=== PATIENT | female | born 1950 | race Caucasian/White ===

== ENCOUNTER → 2018-01-25 | Outpatient (CLI) | payer MEDICARE | END | disposition home or self-care (01) | LOC: CFH 13:43 | PROVIDERS: ATTEND Internal Medicine | DX: N63.10 Unspecified lump in the right breast, unspecified quadrant (principal); R92.1 Mammographic calcification found on diagnostic imaging of breast | CPT/HCPCS: 77065 ==

== ENCOUNTER → 2018-03-08 | Outpatient (CLI) | payer MEDICARE | END | disposition home or self-care (01) | LOC: CFH 08:02 | PROVIDERS: ATTEND Internal Medicine | DX: Z12.2 Encounter for screening for malignant neoplasm of respiratory organs (principal); M81.0 Age-related osteoporosis without current pathological fracture; M85.80 Other specified disorders of bone density and structure, unspecified site; I25.10 Atherosclerotic heart disease of native coronary artery without angina pectoris; R91.1 Solitary pulmonary nodule; F17.210 Nicotine dependence, cigarettes, uncomplicated | CPT/HCPCS: 77080; G0297 ==

== ENCOUNTER → 2018-04-05 | Outpatient (CLI) | payer MEDICARE ==
[~2018-04-05] MED LIST: OMNIPAQUE 350 MG/ML, 150 ML BOTTLE ONE
== END | disposition home or self-care (01) ==
LOC: CFH 09:24
PROVIDERS: ATTEND Physician Assistant Surgical
DX: R93.8 Abnormal findings on diagnostic imaging of other specified body structures (principal); E04.1 Nontoxic single thyroid nodule; K57.30 Diverticulosis of large intestine without perforation or abscess without bleeding
CPT/HCPCS: 74178; 82565; Q9967

== ENCOUNTER → 2018-05-09 | Outpatient (CLI) | payer MEDICARE ==
[~2018-05-09] MED LIST changes: +No meds per pt.; -OMNIPAQUE 350 MG/ML, 150 ML BOTTLE ONE
[2018-05-09 09:39] LABS: MICROSCOPIC NOT IND
== END | disposition home or self-care (01) ==
LOC: STAR 08:47
PROVIDERS: ATTEND Urology
DX: Z01.818 Encounter for other preprocedural examination (principal); C67.9 Malignant neoplasm of bladder, unspecified
CPT/HCPCS: 81003; 87086; 93005

== ENCOUNTER 2018-05-17 08:42 | Day surgery (SDC) | payer MEDICARE ==
[~2018-05-17] VITALS: Ht 167.6 cm; Wt 82.4 kg
[2018-05-17] MEDS ORDERED: ONDANSETRON ODT 8 MG PO ONE (10:00)
[2018-05-17] MEDS ORDERED: ACETAMINOPHEN 500 MG TABLET PO ONE (10:00)
[2018-05-17] MEDS ORDERED: ACETAMINOPHEN 500 MG TABLET ONE (10:01)
[2018-05-17] MEDS ORDERED: MIDAZOLAM 1 MG/ML, 2ML ONE (10:10)
[2018-05-17] MEDS ORDERED: FENTANYL PF 100 MCG/2ML ONE ×2 (10:10→12:07)
[2018-05-17] MEDS ORDERED: LIDOCAINE JELLY 2%, 30GM ONE (10:11)
[2018-05-17] MEDS ORDERED: SUCCINYLCHOLINE 20 MG/ML, 10ML ONE (11:17)
[2018-05-17] MEDS ORDERED: CEFAZOLIN 1,000 MG ONE (11:41)
[2018-05-17] MEDS ORDERED: PROPOFOL 10 MG/ML, 20ML ONE (11:41)
[2018-05-17] MEDS ORDERED: DEXAMETHASONE 4 MG/ML, 1ML ONE (11:41)
[2018-05-17] MEDS ORDERED: SCOPOLAMINE PATCH, 1.5MG PATCH.TD72 TD PRN (12:00)
[2018-05-17] MEDS ORDERED: PROMETHAZINE 25 MG SUPP PR PRN (12:00)
[2018-05-17] MEDS ORDERED: HYDROmorphone 1 MG/ML, 1ML IV PRN (12:00)
[2018-05-17] MEDS ORDERED: MIDAZOLAM 1 MG/ML, 2ML IV PRN (12:00)
[2018-05-17] MEDS ORDERED: LABETALOL 5MG/ML, 20ML IV PRN (12:00)
[2018-05-17] MEDS ORDERED: STERILE WATER INTVESIC ONE (12:00)
[2018-05-17] MEDS ORDERED: OXYcodone 5 MG/5 ML ORAL.SOL UDC PO PRN (12:00)
[2018-05-17] MEDS ORDERED: MITOMYCIN INTVESIC ONE (12:00)
[2018-05-17] MEDS ORDERED: ALBUTEROL/IPRATROPIUM 2.5MG/0.5MG, 3 ML NPPB PRN (12:00)
[2018-05-17] MEDS ORDERED: MEPERIDINE/PF 25MG/0.5ML IVPush PRN (12:00)
[2018-05-17] MEDS ORDERED: ONDANSETRON 2MG/ML, 2ML IV PRN (12:00)
[2018-05-17] MEDS ORDERED: OXYcodone 5 MG/5 ML ORAL.SOL UDC ONE (12:07)
[2018-05-17] MEDS: FENTANYL PF 100 MCG/2ML IV PRN ×2 (12:10→12:16)
== END 2018-05-17 15:00 | disposition home or self-care (01) ==
LOC: OUT 08:42
PROVIDERS: ATTEND Urology
DX: C67.9 Malignant neoplasm of bladder, unspecified (principal); I10 Essential (primary) hypertension
CPT/HCPCS: 52234; 88305; 88307; J0330; J0690; J1100; J2250; J2704; J3010; J9280; Q0162

== ENCOUNTER 2018-07-23 13:19 | Day surgery (SDC) | payer MEDICARE ==
[~2018-07-23] VITALS: Ht 167.6 cm; Wt 83.3 kg
[2018-07-23 14:13] LABS: CULTURE INDICATED? NO; MICROSCOPIC NOT IND
[2018-07-23] MEDS ORDERED: LACTATED RINGERS 1,000 ML IV SCH (14:17)
[2018-07-23 14:19] VITALS: BP 145/84
[2018-07-23] MEDS ORDERED: MIDAZOLAM 1 MG/ML, 2ML ONE (15:16)
[2018-07-23] MEDS ORDERED: FENTANYL PF 250 MCG/5ML ONE (15:16)
[2018-07-23] MEDS ORDERED: PROPOFOL 10 MG/ML, 20ML ONE (15:17)
[2018-07-23] MEDS ORDERED: ROCURONIUM 10 MG/ML,10ML ONE (16:09)
[2018-07-23] MEDS ORDERED: CEFAZOLIN 1,000 MG ONE ×2 (16:24)
[2018-07-23] MEDS ORDERED: ONDANSETRON 2MG/ML, 2ML ONE (16:24)
[2018-07-23] MEDS ORDERED: KETOROLAC 30 MG/1 ML ONE (16:24)
[2018-07-23] MEDS ORDERED: DEXAMETHASONE 4 MG/ML, 1ML ONE (16:24)
[2018-07-23] MEDS ORDERED: OXYcodone 5 MG/5 ML ORAL.SOL UDC PO PRN (16:30)
[2018-07-23] MEDS ORDERED: LABETALOL 5MG/ML, 20ML IV PRN (16:30)
[2018-07-23] MEDS ORDERED: ONDANSETRON 2MG/ML, 2ML IV PRN (16:30)
[2018-07-23] MEDS ORDERED: PROMETHAZINE 25 MG/ML, 1ML IV PRN (16:30)
[2018-07-23] MEDS ORDERED: FENTANYL PF 100 MCG/2ML IV PRN (16:30)
[2018-07-23] MEDS ORDERED: hydrALAzine 20 MG/ML, 1ML IV PRN (16:30)
[2018-07-23] MEDS ORDERED: MEPERIDINE/PF 25MG/0.5ML IVPush PRN (16:30)
[2018-07-23] MEDS ORDERED: HYDROmorphone 2 MG/ML, 1ML IVPush PRN (16:30)
[2018-07-23] MEDS ORDERED: LABETALOL 20 MG/4 ML ONE (17:14)
[2018-07-23] MEDS ORDERED: hydrALAzine 20 MG/ML, 1ML ONE (17:23)
== END 2018-07-23 18:35 | disposition home or self-care (01) ==
LOC: OR 13:19
PROVIDERS: ATTEND Urology
DX: C67.9 Malignant neoplasm of bladder, unspecified (principal); F17.210 Nicotine dependence, cigarettes, uncomplicated; Z72.89 Other problems related to lifestyle; Z98.890 Other specified postprocedural states
CPT/HCPCS: 52234; 81003; 88305; J0690; J1100; J1885; J2250; J2405; J2704; J3010; J7120

== ENCOUNTER → 2018-08-22 | Outpatient (CLI) | payer MEDICARE ==
[~2018-08-22] MED LIST changes: +OMNIPAQUE 350 MG/ML, 100ML BOTTLE ONE
== END | disposition home or self-care (01) ==
LOC: PETCFH 10:46
PROVIDERS: ATTEND Internal Medicine Hematology & Oncology
DX: C67.2 Malignant neoplasm of lateral wall of bladder (principal); D17.71 Benign lipomatous neoplasm of kidney; R91.1 Solitary pulmonary nodule; N28.1 Cyst of kidney, acquired; R93.89 Abnormal findings on diagnostic imaging of other specified body structures; M51.36 Other intervertebral disc degeneration, lumbar region; M47.819 Spondylosis without myelopathy or radiculopathy, site unspecified
CPT/HCPCS: 71260; 74177; 78306; A9503; Q9967

== ENCOUNTER 2018-09-04 10:14 | Day surgery (SDC) | payer MEDICARE ==
[~2018-09-04] VITALS: Ht 165.1 cm; Wt 85.2 kg
[~2018-09-04 10:14] MED LIST changes: -OMNIPAQUE 350 MG/ML, 100ML BOTTLE ONE
[2018-09-04 10:55] VITALS: BP 143/89
[2018-09-04] MEDS ORDERED: CEFAZOLIN PMX 1GM/50ML 50 ML ONE (10:58)
[2018-09-04] MEDS ORDERED: SODIUM CHLORIDE 0.9% 1,000 ML IV SCH (11:00)
[2018-09-04] MEDS ORDERED: CEFAZOLIN PMX 1GM/50ML 50 ML IV ONE (11:00)
[2018-09-04] MEDS ORDERED: LIDOCAINE 1%, 20ML ONE (11:37)
[2018-09-04] MEDS ORDERED: FENTANYL PF 100 MCG/2ML ONE (11:57)
[2018-09-04] MEDS ORDERED: MIDAZOLAM 1 MG/ML, 5ML ONE (11:57)
== END 2018-09-04 15:30 | disposition home or self-care (01) ==
LOC: OUT 10:14
PROVIDERS: ATTEND Nurse Practitioner
DX: Z45.2 Encounter for adjustment and management of vascular access device (principal); C67.2 Malignant neoplasm of lateral wall of bladder; Z87.891 Personal history of nicotine dependence; Z72.89 Other problems related to lifestyle
CPT/HCPCS: 36561; 76937; 77001; 99156; 99157; C1788; J0690; J1642; J2250; J3010; J3490; J7030

== ENCOUNTER → 2018-11-08 | Outpatient (CLI) | payer MEDICARE ==
[~2018-11-08] MED LIST changes: +OMNIPAQUE 350 MG/ML, 100ML BOTTLE ONE
== END | disposition home or self-care (01) ==
LOC: CFH 10:50
PROVIDERS: ATTEND Urology
DX: J84.10 Pulmonary fibrosis, unspecified (principal); R91.1 Solitary pulmonary nodule; E27.8 Other specified disorders of adrenal gland; N32.89 Other specified disorders of bladder; N28.1 Cyst of kidney, acquired; R93.89 Abnormal findings on diagnostic imaging of other specified body structures; D17.79 Benign lipomatous neoplasm of other sites; M47.816 Spondylosis without myelopathy or radiculopathy, lumbar region; Z85.51 Personal history of malignant neoplasm of bladder
CPT/HCPCS: 71260; 74177; Q9967

== ENCOUNTER → 2019-01-08 | Outpatient (CLI) | payer MEDICARE ==
[~2019-01-08] MED LIST changes: +BUPR150T6 PO; -OMNIPAQUE 350 MG/ML, 100ML BOTTLE ONE
[2019-01-08 10:56] LABS: BASOPHILS # (AUTO) 0.05 x10^3/uL (0-0.1); BASOPHILS % (AUTO) 1 % (0-1); EOSINOPHILS # (AUTO) 0.33 x10^3/uL (0-0.4); EOSINOPHILS % (AUTO) 5 % (1-7); LYMPHOCYTES # (AUTO) 2.46 x10^3/uL (1-3.4); LYMPHOCYTES % (AUTO) 39 % (22-44); MD NO; MEAN CORPUSCULAR HEMOGLOBIN 33.5 pg (27.0-34.8); MEAN CORPUSCULAR HGB CONC 33.7 g/dL (32.4-35.8); MEAN CORPUSCULAR VOLUME 99.7 fL (80-100); MEAN PLATELET VOLUME 7.6 fL (7.4-10.4); MONOCYTES % (AUTO) 6 % (2-9); NEUTROPHILS # (AUTO) 3.07 x10^3/uL (1.8-6.8); NEUTROPHILS % (AUTO) 49 % (42-75); PLATELET COUNT 251 x10^3/uL (130-400); RED BLOOD COUNT 4.57 x10^6/uL (3.82-5.3); RED CELL DISTRIBUTION WIDTH 12.6 % (9.6-15.2)
[2019-01-08 10:56] LABS: MICROSCOPIC NOT IND
[2019-01-08 11:09] LABS: ALBUMIN 3.8 g/dL (3.4-5.0); ANION GAP 8 mmol/L (5-15); CALCIUM 9.2 mg/dL (8.5-10.1); CHLORIDE 108 mmol/L (98-107)
[2019-01-08 11:13] LABS: ALANINE AMINOTRANSFERASE 64 U/L (12-78); ALKALINE PHOSPHATASE 86 U/L (45-117); BILIRUBIN,TOTAL 0.5 mg/dL (0.2-1.0); CREATININE 0.82 mg/dL (0.55-1.02); TOTAL PROTEIN 7.4 g/dL (6.4-8.2)
== END | disposition home or self-care (01) ==
LOC: STAR 09:44
PROVIDERS: ATTEND Urology
DX: Z01.818 Encounter for other preprocedural examination (principal); C67.9 Malignant neoplasm of bladder, unspecified
CPT/HCPCS: 36415; 80053; 81003; 85025; 87077; 87086; 93005

== ENCOUNTER → 2019-01-11 | Outpatient (CLI) | payer MEDICARE | END | disposition home or self-care (01) | LOC: WOUND 07:36 | PROVIDERS: ATTEND Family Medicine | DX: T81.89XA Other complications of procedures, not elsewhere classified, initial encounter (principal); Y83.8 Other surgical procedures as the cause of abnormal reaction of the patient, or of later complication, without mention of misadventure at the time of the procedure; Y92.89 Other specified places as the place of occurrence of the external cause | CPT/HCPCS: G0463 ==

== ENCOUNTER → 2019-05-29 | Outpatient (CLI) | payer MEDICARE ==
[~2019-05-29] MED LIST changes: +DOCU-131 PO; +ENOX30DI IM; +NITR50CA11 PO; +OXYC5TAB2 PO
== END | disposition home or self-care (01) ==
LOC: WOUND 07:45
PROVIDERS: ATTEND Internal Medicine
DX: Z93.6 Other artificial openings of urinary tract status (principal); F17.200 Nicotine dependence, unspecified, uncomplicated; Z85.51 Personal history of malignant neoplasm of bladder
CPT/HCPCS: G0463

== ENCOUNTER → 2019-06-05 | Outpatient (CLI) | payer MEDICARE | END | disposition home or self-care (01) | LOC: WOUND 07:55 | PROVIDERS: ATTEND Internal Medicine | DX: Z93.6 Other artificial openings of urinary tract status (principal); F17.200 Nicotine dependence, unspecified, uncomplicated; Z85.51 Personal history of malignant neoplasm of bladder | CPT/HCPCS: G0463 ==

== ENCOUNTER 2019-09-02 17:27 | Emergency (ER) | payer MEDICARE ==
[~2019-09-02] VITALS: Ht 167.6 cm; Wt 74.3 kg
[2019-09-02 18:02] LABS: BASOPHILS # (AUTO) 0.05 x10^3/uL (0-0.1); BASOPHILS % (AUTO) 1 % (0-1); EOSINOPHILS # (AUTO) 0.27 x10^3/uL (0-0.4); EOSINOPHILS % (AUTO) 3 % (1-7); LYMPHOCYTES % (AUTO) 34 % (22-44); MD NO; MEAN CORPUSCULAR HEMOGLOBIN 32.4 pg (27.0-34.8); MEAN CORPUSCULAR HGB CONC 33.6 g/dL (32.4-35.8); MEAN CORPUSCULAR VOLUME 96.3 fL (80-100); MEAN PLATELET VOLUME 7.6 fL (7.4-10.4); MONOCYTES # (AUTO) 0.54 x10^3/uL (0.2-0.8); MONOCYTES % (AUTO) 6 % (2-9); NEUTROPHILS # (AUTO) 4.74 x10^3/uL (1.8-6.8); NEUTROPHILS % (AUTO) 56 % (42-75); PLATELET COUNT 287 x10^3/uL (130-400); RED BLOOD COUNT 4.39 x10^6/uL (3.82-5.3); RED CELL DISTRIBUTION WIDTH 13.8 % (9.6-15.2)
--- NOTE | 2019-09-02 18:13 | NUR ---
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 JASEN
[2019-09-02 18:24] LABS: ALBUMIN 3.8 g/dL (3.4-5.0); ANION GAP 6 mmol/L (5-15); CALCIUM 9.1 mg/dL (8.5-10.1); CHLORIDE 116 mmol/L (98-107); CREATININE 0.78 mg/dL (0.55-1.02)
--- NOTE | 2019-09-02 18:26 | NUR ---
FIRST CONTACT WITH PT. PT STATES "I HAVE A UROSTOMY AND NOW ITS INFECTED." HX BLADDER CANCER. REDNESS NOTED AROUND UROSTOMY. PT C/O BURNING SENSATION AROUND UROSTOMY BAG. PT'S AOX4. RESPS EVEN AND UNLABORED. BP/SPO2 MONITORS IN PLACE. CALL LIGHT WITHIN REACH.
--- NOTE | 2019-09-02 18:30 | NUR ---
URINE COLLECTED FROM UROSTOMY BAG AT THIS TIME. UA SENT.
--- NOTE | 2019-09-02 18:49 | NUR ---
REPORT GIVEN TO SUE OLIVAREZ.
--- NOTE | 2019-09-02 18:49 | NUR ---
UROSTOMY SUPPLIES GIVEN TO SUE OLIVAREZ.
--- NOTE | 2019-09-02 19:04 | NUR ---
Removed ostomy bag. Ostomy bright red, with obvious skin break down extending to the edge of bag placement. Pt states ostomy looks similar to how it looked when it was infected last.
[2019-09-02 19:19] LABS: CULTURE INDICATED? YES; MICROSCOPIC INDICATED
--- NOTE | 2019-09-02 19:23 | NUR ---
new ostomy bag placed on patient. Pt concerned about leaking, still. Will continue to monitor.
[2019-09-02 20:12] VITALS: BP 140/70
--- NOTE | 2019-09-02 20:15 | NUR ---
No leaking noted from ostomy bag at this time
== END 2019-09-02 20:46 | disposition home or self-care (01) ==
LOC: ED 20:40
DX: N99.522 Malfunction of incontinent external stoma of urinary tract (principal); N30.00 Acute cystitis without hematuria; L24.9 Irritant contact dermatitis, unspecified cause; L03.311 Cellulitis of abdominal wall; F17.200 Nicotine dependence, unspecified, uncomplicated
CPT/HCPCS: 36415; 80048; 81001; 82040; 85025; 87077; 87086; 87186; 99283

== ENCOUNTER → 2019-09-04 | Outpatient (CLI) | payer MEDICARE | END | disposition home or self-care (01) | LOC: WOUND 11:30 | PROVIDERS: ATTEND Internal Medicine | DX: S31.109D Unspecified open wound of abdominal wall, unspecified quadrant without penetration into peritoneal cavity, subsequent encounter (principal); F17.200 Nicotine dependence, unspecified, uncomplicated; X58.XXXD Exposure to other specified factors, subsequent encounter | CPT/HCPCS: G0463 ==

== ENCOUNTER → 2019-10-29 | Outpatient (CLI) | payer MEDICARE | END | disposition home or self-care (01) | LOC: WOUND 14:12 | PROVIDERS: ATTEND Nurse Practitioner Family | DX: Z93.6 Other artificial openings of urinary tract status (principal); F17.200 Nicotine dependence, unspecified, uncomplicated; Z85.51 Personal history of malignant neoplasm of bladder | CPT/HCPCS: G0463 ==

== ENCOUNTER 2019-11-05 08:02 | Outpatient (CLI) | payer MEDICARE | END 2019-11-05 23:59 | disposition home or self-care (01) | LOC: WOUND 08:02 | PROVIDERS: ATTEND Nurse Practitioner Family | DX: Z93.6 Other artificial openings of urinary tract status (principal); F17.200 Nicotine dependence, unspecified, uncomplicated; Z85.51 Personal history of malignant neoplasm of bladder | CPT/HCPCS: G0463 ==

== ENCOUNTER → 2020-01-14 | Outpatient (CLI) | payer MEDICARE ==
[~2020-01-14] MED LIST changes: +OMNIPAQUE 350 MG/ML, 150 ML BOTTLE ONE
== END | disposition home or self-care (01) ==
LOC: CFH 08:00
PROVIDERS: ATTEND Student in an Organized Health Care Education/Training Program
DX: C67.9 Malignant neoplasm of bladder, unspecified (principal); M51.36 Other intervertebral disc degeneration, lumbar region
CPT/HCPCS: 71046; 74178; 82565; Q9967

== ENCOUNTER 2020-02-03 07:27 | Day surgery (SDC) | payer MEDICARE ==
[~2020-02-03] VITALS: Ht 165.1 cm; Wt 76.5 kg
[~2020-02-03 07:27] MED LIST changes: -OMNIPAQUE 350 MG/ML, 150 ML BOTTLE ONE
[2020-02-03 08:29] VITALS: BP 146/81
[2020-02-03] MEDS ORDERED: LIDOCAINE 1%, 10ML ONE (08:31)
[2020-02-03] MEDS ORDERED: LIDOCAINE 1%, 20ML ONE (08:31)
[2020-02-03] MEDS ORDERED: FENTANYL PF 100 MCG/2ML ONE (08:40)
[2020-02-03] MEDS ORDERED: NALOXONE 1 MG/ML, 2ML ONE (08:40)
[2020-02-03] MEDS ORDERED: FLUMAZENIL 0.1 MG/1 ML, 5ML ONE (08:40)
[2020-02-03] MEDS ORDERED: MIDAZOLAM 1 MG/ML, 5ML ONE (08:40)
== END 2020-02-03 10:30 | disposition home or self-care (01) ==
LOC: OUT 07:27
PROVIDERS: ATTEND Internal Medicine Hematology & Oncology
DX: Z45.2 Encounter for adjustment and management of vascular access device (principal); C67.2 Malignant neoplasm of lateral wall of bladder; F17.200 Nicotine dependence, unspecified, uncomplicated
CPT/HCPCS: 36590; 99156; 99157; J2250; J3010; 77001; J2310

== ENCOUNTER → 2020-03-27 | Outpatient (CLI) | payer MEDICARE | END | disposition home or self-care (01) | LOC: WOUND 07:47 | PROVIDERS: ATTEND Family Medicine | DX: F17.200 Nicotine dependence, unspecified, uncomplicated (principal); R21 Rash and other nonspecific skin eruption; Z85.51 Personal history of malignant neoplasm of bladder; Z93.6 Other artificial openings of urinary tract status | CPT/HCPCS: G0463 ==

== ENCOUNTER 2021-04-05 13:58 | Outpatient (CLI) | payer MEDICARE ==
[~2021-04-05 13:58] MED LIST changes: +BUPR150T22 PO; -BUPR150T6 PO
[2021-04-05] MEDS ORDERED: OMNIPAQUE 350 MG/ML, 75ML BOTTLE ONE (15:42)
== END 2021-04-05 23:59 | disposition home or self-care (01) ==
LOC: CFH 13:58
PROVIDERS: ATTEND Internal Medicine
DX: Z12.31 Encounter for screening mammogram for malignant neoplasm of breast (principal); J43.9 Emphysema, unspecified; R91.1 Solitary pulmonary nodule; N95.8 Other specified menopausal and perimenopausal disorders; M85.88 Other specified disorders of bone density and structure, other site; N64.89 Other specified disorders of breast
CPT/HCPCS: 71260; 77063; 77067; 77080; 82565; Q9967